=== PATIENT | female | born 1955 | race Caucasian/White ===

== ENCOUNTER 2021-05-27 07:52 | Emergency (ER) | payer OTHER, MEDICARE, SELFPAY ==
[~2021-05-27] VITALS: Ht 160 cm; Wt 90.7 kg
[~2021-05-27 07:52] MED LIST: AMOX-426 PO; GLUXR500 PO; L.RH1CAP PO; TRAM50TA2 PO
[2021-05-27 08:00] VITALS: BP_SYST 148
--- NOTE | 2021-05-27 08:05 | NUR ---
ER in [facility] examining patient.
[2021-05-27 08:30] LABS: BASOPHILS % (AUTO) 0.6 % (0.0-2.0); EOSINOPHILS # (AUTO) 0.2 K/uL (0.0-0.4); EOSINOPHILS % (AUTO) 3.5 % (0.0-4.0); HEMATOCRIT 44.8 % (36-48); HEMOGLOBIN 14.9 g/dL (12.0-16.0); LYMPHOCYTES # (AUTO) 1.9 K/uL (1.0-5.5); LYMPHOCYTES % (AUTO) 28.5 % (20.5-51.5); MEAN CORPUSCULAR HEMOGLOBIN 29 pg (27-31); MEAN CORPUSCULAR HGB CONC 33 % (32-36); MEAN CORPUSCULAR VOLUME 88 fL (79.0-98.0); MONOCYTES # (AUTO) 0.3 K/uL (0.0-1.0); MONOCYTES % (AUTO) 5.2 % (1.7-9.3); NEUTROPHILS # (AUTO) 4.1 K/uL (1.8-7.7); NEUTROPHILS % (AUTO) 62.2 % (40.0-70.0); PLATELET COUNT (AUTO) 201 K/uL (130-430); RED BLOOD CELL COUNT(AUTO) 5.07 MIL/uL (4.2-6.2); RED CELL DISTRIBUTION WIDTH 12.9 % (9.0-15.0); WHITE BLOOD COUNT (AUTO) 6.6 K/uL (4.8-10.8)
[2021-05-27 08:42] LABS: CALCIUM 9.8 mg/dL (8.4-11.0); CREATININE 0.95 mg/dL (0.55-1.30); POTASSIUM 4.3 mmol/L (3.5-5.1)
--- NOTE | 2021-05-27 08:46 | NUR ---
Patient transported to radiology via WC, accompanied by .
[2021-05-27 08:47] LABS: ALBUMIN 3.7 g/dL (3.4-4.8); C-REACTIVE PROTEIN QUANT 1.6 mg/dL (0-0.5)
[2021-05-27 08:50] LABS: TOTAL BILIRUBIN 5.3 mg/dL (0.0-1.0)
[2021-05-27 08:53] LABS: PROTHROMBIN TIME 10.1 SECS (9.5-12.5)
--- NOTE | 2021-05-27 08:55 | NUR ---
Returned from radiology, back to [facility].
[2021-05-27] MEDS ORDERED: ONDANSETRON 4 MG ODT TAB PO ONE (09:15)
[2021-05-27 09:36] LABS: BILIRUBIN,URINE 3+ (NEGATIVE); BLOOD, URINE NEGATIVE (NEGATIVE); COLOR,URINE ORANGE (YELLOW); GLUCOSE,URINE TRACE (NEGATIVE); KETONES,URINE TRACE (NEGATIVE); LEUKOCYTE ESTERASE ,URINE NEGATIVE (NEGATIVE); NITRITE, URINE NEGATIVE (NEGATIVE); PROTEIN URINE TRACE (NEGATIVE)
--- NOTE | 2021-05-27 09:42 | NUR ---
Patient to ER bed 4 to gown for evaluation. Side rails up. Report given to hSanti BULL.
[2021-05-27] MEDS ORDERED: LR 1,000 ML IV SCH (09:45)
[2021-05-27] MEDS ORDERED: DEXTROSE 50% JECT 50 ML DISP.SYRIN IVP PRN ×2 (09:45→12:45)
[2021-05-27] MEDS ORDERED: INSULIN REGULAR, HUMAN 100 UNITS/ML, 10 ML VIAL (humuLIN R) SUBCUT PRN ×2 (09:45→12:45)
[2021-05-27 09:48] LABS: CLARITY/URINE HAZY (CLEAR)
[2021-05-27 09:53] LABS: BACTERIA,URINE FEW /HPF (None Seen); RBC,URINE 0-3 /HPF (0-3); WBC,URINE 0-3 /HPF (0-3)
[2021-05-27 09:54] LABS: MUCUS,URINE 1+ /LPF (None Seen)
--- NOTE | 2021-05-27 10:06 | NUR ---
RECEIVED PT, REPORTS ACHING PAIN 6/10 TO RIGHT SIDED BACK AREA FOR SEVERAL HOURS. REPORTS TAKING ULTRAM AT HOME WITHOUT ANY RELIEF. DENIES ANY FALL, TINGLING/NUMBNESS TO MICHELLE LE. AT BEDSIDE.
--- NOTE | 2021-05-27 10:56 | NUR ---
PT TO MRI VIA [facility]
[2021-05-27] MEDS ORDERED: ONDANSETRON HCL 4 MG/2 ML VIAL IVP ONE (12:00)
[2021-05-27] MEDS ORDERED: MORPHINE 4 MG INJ. 4 MG/ML VIAL IVP PRN (12:00)
[2021-05-27] MEDS ORDERED: ACETAMINOPHEN 325 MG TABLET PO PRN (12:30)
[2021-05-27] MEDS ORDERED: KETOROLAC TROMETHAMINE 15 MG VIAL IVP PRN (12:30)
[2021-05-27] MEDS ORDERED: ONDANSETRON HCL 4 MG/2 ML VIAL IVP PRN (12:30)
[2021-05-27] MEDS ORDERED: FAMOTIDINE PF 20 MG/2 ML VIAL IVP ONE (12:30)
--- NOTE | 2021-05-27 14:21 | NUR ---
Requested BP medication for patient, BP 193/92 at this time
[2021-05-27] MEDS ORDERED: LOSA25TA3 PO (14:24)
[2021-05-27] MEDS ORDERED: LEVO137T32 PO (14:24)
[2021-05-27] MEDS ORDERED: SEMA0.25 SQ (14:35)
--- NOTE | 2021-05-27 14:35 | NUR ---
Medication reconciliation completed with information provided by patient . Any prior medication reconciliation on file was reviewed and corrected.
--- NOTE | 2021-05-27 15:19 | NUR ---
REPORTS FEELING BETTER FROM HEADACHE, BUT CONTINUES TO BE WITH NAUSEA. BP 156/72, HR 74, RR-20/ IV FLUIDS INFUSING WELL. SKIN W/D/I.
--- NOTE | 2021-05-27 15:31 | NUR ---
DR DICK REQUESTING TO LEAVE AGAINST MEDICAL ADVICE. PER GI MD ADVICE, TRANSFER TO [facility] THRU ER. REFUSES TO BE TRANSFERRED VIA AMBULNACE, STATES WILL DRIVE SELF. IV HL DC'D TO LEFT HAND, BLEEDING CONTROLLED. VSS, PT CONTINUES WITH NAUSEA/VOMITIING. NO PAIN AT THIS TIME. DENIES SOB OR CP. SKIN W/D/I. PT LEFT VIA W/C ACCOMPAIED BY DENISE-KOSTAS, ASSISTED TO CAR. PT SIGNED AMA FORM.
[2021-05-27 15:35] VITALS: BP_SYST 149
--- NOTE | 2021-05-27 15:39 | NUR ---
Patient does not wish to proceed with medical care recommended by DR WILKINS. Patient given information related to possible complications, up to and including , which could occur as a result of leaving hospital at this time. Patient verbalizes understanding of risks involved leaving against medical advice. Patient has signed AMA form.
--- NOTE | 2021-05-27 16:11 | NUR ---
DR ORTIZ INFORMED OF AMA VIA PHONE.
[2021-05-27] MEDS ORDERED: PIPERACILLIN/TAZO 3.375/DEX-IS 50 ML IV SCH (18:00)
[2021-05-27] MEDS ORDERED: FAMOTIDINE PF 20 MG/2 ML VIAL IVP SCH (21:00)
== END 2021-05-27 15:35 | disposition left against medical advice (07) ==
LOC: SED 07:52 → SMU 09:34 → UNDOADMIN 09:34 → SMU 15:35
DX: E80.6 Other disorders of bilirubin metabolism (principal); K75.9 Inflammatory liver disease, unspecified; I10 Essential (primary) hypertension; E11.9 Type 2 diabetes mellitus without complications; Z79.899 Other long term (current) drug therapy
CPT/HCPCS: 36415; 71045; 74176; 74181; 76376; 80053; 81000; 82150; 83615; 83690; 84484; 85025; 85610; 85730; 86140; 93005; 96361; 96374; 96375; 96376; 99285; J2270; J2405; Q0162; 83605; J2543